=== PATIENT | female | born 1945 | race Caucasian/White ===

== ENCOUNTER 2018-01-07 08:20 | Outpatient (CLI) | payer MEDICARE, OTHER ==
[~2018-01-07] VITALS: Ht 157.5 cm; Wt 61.6 kg
[2018-01-07] MEDS ORDERED: COZAAR100 MG PO (08:38)
[2018-01-07] MEDS ORDERED: NORCO 325 MG-51 TAB PO (08:38)
[2018-01-07] MEDS ORDERED: FLEXERIL 1010 MG/TAB PO (08:38)
[2018-01-07] MEDS ORDERED: HYGROTON 2525 MG/TAB PO (08:39)
[2018-01-07] MEDS ORDERED: MINOCIN 50M50 MG/CAP PO (08:39)
[2018-01-07 08:40] VITALS: BP 137/63; PULSE 71; TEMP 97.2
[2018-01-07] MEDS ORDERED: PRESERVISION1 SGL PO (08:40)
[2018-01-07 11:52] VITALS: BP 157/82; PULSE 77
== END 2018-01-07 15:13 | disposition home or self-care (01) ==
LOC: COL.CAR 08:20
DX: S22.070A Wedge compression fracture of T9-T10 vertebra, initial encounter for closed fracture (principal); I10 Essential (primary) hypertension; Z90.49 Acquired absence of other specified parts of digestive tract
CPT/HCPCS: J2250; J3010; J7120